=== PATIENT | female | born 1995 | race African-American/Black ===

== ENCOUNTER 2016-05-20 17:49 | Emergency (ER) ==
--- NOTE | 2016-05-20 18:50 | PROVIDER DOCUMENTATION ---
HPI-Rash/Wound/ReCheck - General Source: patient - History of Present Illness-Dermatology Location: reports: upper extremity, other (left breast) Quality: reports: itchy Severity: reports: moderate Timing: reports: still present Exposure: reports: unknown cause Similar Symptoms Previously?: No Recently seen or treated by another doctor?: No <Jose Saxena - Last Filed: 05/20/16 18:47> <Shannan Anderson - Last Filed: 05/20/16 18:55> - General Chief Complaint: Rash Stated Complaint: RASH Time Seen by Provider: 05/20/16 18:09 Allergies/Adverse Reactions: Allergies Allergy/AdvReac Type Severity Reaction Status Date / Time No Known Allergies Allergy Verified 05/20/16 17:57 Home Medications: Home Medication List Medication Instructions Recorded Confirmed Last Taken Type Albuterol Sulfate Inhaler 2 puff INH Q6H PRN PRN #1 inhaler 04/20/16 05/20/16 Unknown Rx [Ventolin Hfa] Albuterol Sulfate [Proair Hfa] 8 mg PO DAILY 04/20/16 05/20/16 Unknown History Diphenhydramine HCl/Zinc Acet 28.3 gm TP BID #1 cream..g. 05/20/16 Unknown Rx [Benadryl Itch Stopping Crm] Famotidine [Pepcid] 20 mg PO DAILY PRN 05/20/16 05/20/16 Unknown History - History of Present Illness-Dermatology Nature of Presenting Problem: 20 y/o F presents to the ED with a rash than began 3 days ago on her elbows and forearm. Today it began on her left breast. Pt is 20 weeks . ( Jose Saxena) Review of Systems - Adult - REVIEW OF SYSTEMS - ADULT Constitutional: denies: chills, fever Eyes: reports: no symptoms reported Ears, Nose, Mouth & Throat: reports: no symptoms reported Cardiovascular: reports: no symptoms reported Respiratory: reports: cough. denies: shortness of breath, wheezing Gastrointestinal: reports: no symptoms reported Genitourinary: reports: no symptoms reported Musculoskeletal: reports: no symptoms reported Integumentary: reports: hives, itching, rash Neurological: reports: no symptoms reported Psychiatric: reports: no symptoms reported Endocrine: reports: no symptoms reported Hematologic/Lymphatic: reports: no symptoms reported Allergic/Immunologic: reports: no symptoms reported All Other Systems: Reviewed and Negative <HemanthJose - Last Filed: 05/20/16 18:47> Past History - Adult - PAST MEDICAL HISTORY-ADULT Review of Records: reports: Old Records Reviewed, Nursing Assessment Review, Medications Reviewed Major Childhood Illnesses: reports: denies history Cardiovascular: reports: denies history Respiratory: reports: asthma Gastrointestinal: reports: denies history Obstetrical/Gynecological: reports: denies history Genitourinary: reports: denies history Musculoskeletal: reports: denies history Neurological: reports: denies history Endocrine/Immune: reports: denies history Other Conditions: reports: denies history - PRIOR SURGERIES/PROCEDURES Surgical/Procedure History: reports: reviewed, not pertinent, tonsillectomy - IMMUNIZATION STATUS Childhood Immunizations: See Nurse Assessment Flu Vaccine: See Nurse Assessment - FAMILY HISTORY Family History: reviewed, not pertinent - SOCIAL HISTORY Smoking: non-smoker Occupation: Childcare worker <HemanthJose - Last Filed: 05/20/16 18:47> Physical Exam-General - PHYSICAL EXAM-ADULT Initial Vital Signs Reviewed: Yes - CONSTITUTIONAL General Appearance: appears well, alert, no apparent distress - EYES Eyes: PERRL/EOMI, pink conjunctivae - HEAD, EARS, NOSE, MOUTH & THROAT HENMT: normocephalic/atraumatic, moist mucous membranes, normal ENT inspection, TMs normal, pharynx normal - RESPIRATORY Respiratory: lungs clear, normal breath sounds - CARDIOVASCULAR Cardiovascular: normal peripheral pulses, regular rate, rhythm - MUSCULOSKELETAL Extremity: normal range of motion, normal inspection, normal capillary refill - SKIN Integumentary: erythema (itchy raised rash noted to left forearm/elbow and left breast area). negative: tenderness <Shannan Anderson - Last Filed: 05/20/16 18:55> Departure <Jona Saxenain - Last Filed: 05/20/16 18:47> - Departure Time of Disposition Order: 18:50 Certified Medical Emergency: Urgent <Shannan Anderson - Last Filed: 05/20/16 18:55> - Departure DIAGNOSIS: Contact dermatitis and eczema Disposition: HOME 01 Condition: Stable Additional Instructions: Benadryl OTC ED Follow Up Instructions: You have been treated by a care provider in the Emergency Department. These instructions are being provided to you so you can have an understanding of how to care for yourself upon discharge. Upon discharge from the Emergency Department, you are responsible for making arrangements for follow-up care by a physician of your choice. Take all prescribed medications as directed. Return to the Emergency Department immediately for any new or worsening symptoms. You may call the Physician Referral phone number at [phone] to obtain a list of Physicians who are taking new patients. Prescriptions: Diphenhydramine HCl/Zinc Acet [Benadryl Itch Stopping Crm] 28.3 gm TP BID #1 cream..g. Referrals: None,PCP [Primary Care Provider] - Sivakumar Murcia [NON-STAFF] - Attestation - Scribe Verification/Attestation Scribe:: Jose Saxena Acting as Scribe for:: Shannan Anderson Scribe documention review:: This chart was documented by a scribe and accurately reflects the service the provider performed and the decisions made by the provider. <Jose Saxena - Last Filed: 05/20/16 18:47> - Physician/ KOJO Attestation Patient care was provided by Advanced Practice Provider:: Yes Advanced Practice Provider:: Shannan Anderson Advanced Practice Provider documentation review:: The Mid-level provider documentation, treatment plan and medical decision making was reviewed by the physician who agrees with all treatment and medical decision making by the MLP. <Shannan Anderson - Last Filed: 05/20/16 18:55> Physician Attestation
[2016-05-20 19:29] VITALS: BP 128/76
== END 2016-05-20 19:28 | disposition home or self-care (01) ==
LOC: P.ED 17:49
DX: O26.892 Other specified pregnancy related conditions, second trimester (principal); L25.9 Unspecified contact dermatitis, unspecified cause; R21 Rash and other nonspecific skin eruption; L29.9 Pruritus, unspecified; L50.9 Urticaria, unspecified; L53.9 Erythematous condition, unspecified; Z79.899 Other long term (current) drug therapy; Z3A.20 20 weeks gestation of pregnancy
CPT/HCPCS: 99282